=== PATIENT | female | born 1990 | race Caucasian/White ===

== ENCOUNTER → 2020-01-06 10:12 | Outpatient (BNVA) | payer MEDICAID, SELFPAY | PROVIDERS: Family Provider Family Medicine; PCP Emergency Medicine; Visit Provider Obstetrics & Gynecology | DX: Z34.93 Encounter for supervision of normal pregnancy, unspecified, third trimester (principal) | CPT/HCPCS: 76816; 82950; 84315; 85027 ==

== ENCOUNTER → 2020-01-20 11:55 | Outpatient (BNVA) | payer MEDICAID, SELFPAY | PROVIDERS: Family Provider Family Medicine; PCP Emergency Medicine; Visit Provider Obstetrics & Gynecology | DX: Z01.89 Encounter for other specified special examinations (principal) | CPT/HCPCS: 84315 ==

== ENCOUNTER → 2020-02-03 10:57 | Outpatient (BNVA) | payer MEDICAID, SELFPAY | PROVIDERS: Family Provider Family Medicine; PCP Emergency Medicine; Visit Provider Obstetrics & Gynecology | DX: Z01.89 Encounter for other specified special examinations (principal) | CPT/HCPCS: 84315 ==

== ENCOUNTER → 2020-02-17 08:42 | Outpatient (BNVA) | payer MEDICAID, SELFPAY | PROVIDERS: Family Provider Family Medicine; PCP Emergency Medicine; Visit Provider Obstetrics & Gynecology | DX: O99.013 Anemia complicating pregnancy, third trimester (principal); O99.323 Drug use complicating pregnancy, third trimester | CPT/HCPCS: 80307; 84315; 85027 ==

== ENCOUNTER → 2020-02-29 14:14 | Outpatient (BNVA) | payer MEDICAID, SELFPAY | PROVIDERS: Family Provider Family Medicine; PCP Emergency Medicine; Visit Provider Obstetrics & Gynecology | DX: Z34.90 Encounter for supervision of normal pregnancy, unspecified, unspecified trimester (principal); O09.893 Supervision of other high risk pregnancies, third trimester; O99.323 Drug use complicating pregnancy, third trimester; O99.013 Anemia complicating pregnancy, third trimester; O99.333 Smoking (tobacco) complicating pregnancy, third trimester; O99.343 Other mental disorders complicating pregnancy, third trimester | CPT/HCPCS: 84315; 87081 ==

== ENCOUNTER → 2020-03-08 13:01 | Outpatient (BNVA) | payer MEDICAID, SELFPAY | PROVIDERS: Family Provider Family Medicine; PCP Emergency Medicine; Visit Provider Obstetrics & Gynecology Female Pelvic Medicine and Reconstructive Surgery | DX: Z34.90 Encounter for supervision of normal pregnancy, unspecified, unspecified trimester (principal); O09.893 Supervision of other high risk pregnancies, third trimester; O99.013 Anemia complicating pregnancy, third trimester; O99.333 Smoking (tobacco) complicating pregnancy, third trimester; O99.343 Other mental disorders complicating pregnancy, third trimester; O99.323 Drug use complicating pregnancy, third trimester; F31.0 Bipolar disorder, current episode hypomanic; F12.10 Cannabis abuse, uncomplicated; F17.209 Nicotine dependence, unspecified, with unspecified nicotine-induced disorders | CPT/HCPCS: 80053; 82570; 84156; 84315; 84550; 85025 ==

== ENCOUNTER → 2020-03-15 10:10 | Outpatient (BNVA) | payer MEDICAID, SELFPAY | PROVIDERS: Family Provider Family Medicine; PCP Emergency Medicine; Visit Provider Obstetrics & Gynecology | DX: O09.893 Supervision of other high risk pregnancies, third trimester (principal) | CPT/HCPCS: 84315 ==

== ENCOUNTER 2020-03-18 20:21 | Outpatient (CLI) | payer MEDICAID, SELFPAY ==
[2020-03-18 20:32] VITALS: BMI 34.2
[2020-03-18 20:33] VITALS: BMI 34.2
[2020-03-18 20:38] VITALS: BP 140/77; PULSE 97
[2020-03-18 20:40] VITALS: TEMP 36.8
[2020-03-18 23:05] VITALS: BP 125/71; PULSE 80; RESP 16; TEMP 36.6
== END 2020-03-18 23:13 | disposition home or self-care (01) ==
LOC: OPOB 20:24 → OBGYN 20:25
PROVIDERS: Family Provider Family Medicine; PCP Emergency Medicine; Visit Provider Obstetrics & Gynecology
DX: O26.899 Other specified pregnancy related conditions, unspecified trimester (principal); Z3A.00 Weeks of gestation of pregnancy not specified; R10.9 Unspecified abdominal pain
CPT/HCPCS: 59025; 99211

== ENCOUNTER 2020-03-23 17:39 | Inpatient (IN) | payer MEDICAID, SELFPAY ==
[2020-03-23] VITALS (27 sets, daily range): BP systolic 0–157; BP diastolic 0–91; PULSE 16–109; RESP 15–25; TEMP 36.6–36.9; O2SAT 96–98; BMI 34.4
[2020-03-23] MEDS: dextrose 5%-lactated ringers 1,000 ML 125 ML IV (18:00)
[2020-03-23 18:03] LABS: Basophils # 0.1 10^3/uL (0.0-0.1); Basophils % 0.4 %; Eosinophils # 0.1 10^3/uL (0.0-0.8); Eosinophils % 0.5 %; Hematocrit 36.9 % (37.0-47.0); Hemoglobin 12.1 g/dL (11.5-15.3); Lymphocytes # 2.4 10^3/uL (0.8-4.8); Lymphocytes % 20.6 %; Mean Corpuscular HGB Conc 32.8 g/dL (30.0-36.0); Mean Corpuscular Hemoglobin 28.8 pg (28.0-34.0); Mean Corpuscular Volume 87.9 fL (81-99); Mean Platelet Volume 10.8 fL (7.4-10.4); Monocytes # 0.7 10^3/uL (0.2-0.9); Monocytes % 6.1 %; Neutrophils # 8.2 10^3/uL (1.8-7.7); Neutrophils % 71.8 %; Nucleated Red Blood Cells % 0 %; Platelet Count 308 10^3/cmm (130-400); Red Cell Distribution Width 13.2 % (12.1-15.1); White Blood Count 11.5 10^3/uL (4.0-10.0)
--- NOTE | 2020-03-23 18:05 | PC.NURSE ---
Patient reports she doesn't have primary custody of her four year old, her four year old's primary receiving barn custodian is that baby's father.
[2020-03-23] MEDS: fentaNYL 50 mcg/mL INJ 2mL IV (18:22)
[2020-03-23] MEDS: oxytocin 30 UNIT/500 ML BAG 600 UNIT IV (19:25)
--- NOTE | 2020-03-23 19:27 | P.PCNOB_ITS ---
Delivery Note: Date of delivery: March 23, 2020 Pre-delivery diagnoses: Term Post-delivery diagnoses: Term delivered Procedure: Spontaneous vaginal delivery Op report anesthesia: None Delivering Physician: Malcom Stark M.D. Estimated blood loss (mL): 500 Findings: Baby girl, Apgars: 8/9 weight 3165g. Delivery: The patient was noted to be complete and pushing, so was placed in the dorsal lithotomy position, Membranes were rupture with clear fluids And then she was prepped and draped in the usual sterile fashion for a vaginal delivery. Pt. Noted to have no anesthesia. At time the patient delivered a Viable Female infant At 39 weeks weighing 3165 g with scores of 8 and 9 at one and five minutes, respectively. The vertex was delivered spontaneously over Intact perineum. The patient was asked to push and the head delivered spontaneously in the MARGARET position, over an intact perineum. A nuchal cord was checked and 1 noted, and Delivered through around head as necessary. The anterior shoulder delivered easily and the posterior shoulder followed. The remainder of the was easily delivered and the oropharynx and nasopharynx was bulb suctioned. The infant was noted to have spontaneous cry and spontaneous movement of all four extremities. The cord was clamped x 2 and cut and noted to have 2 arteries and one vein. The infant was passed to the Mother's abdomen where Nursing personnel were in attendance. Cord Blood was then obtained. The placenta delivered intact Spontaneously and the uterus Was explored. 20 units of Pitocin was placed in the IV bag to firm the uterus. Examination of the cervix and vaginal vault did not reveal any lacerations. A vaginal pack was then placed. Examination of the perineum showed No lacerations. The vaginal pack was then removed. The patient tolerated this procedure well, and recovered in L&D with her infant to the OB lui. All sponge and needle counts were correct. A&P Assessment and plan (1) Spontaneous vaginal delivery: Status: Resolved Coding Level of Care Code Acute In Service Coordinator for Chg Fwd Diagnoses Spontaneous vaginal delivery O80
[2020-03-23 20:39] LABS: Amphetamines Screen Urine Negative (Negative); Barbiturates Screen Urine Negative (Negative); Benzodiazepines Screen Urine Negative (Negative); Cocaine Screen Urine Negative (Negative); Opiate Screen Urine Negative (Negative); PCP Screen Urine Negative (Negative); THC Screen Urine Negative (Negative)
--- NOTE | 2020-03-23 21:15 | PC.NURSE ---
Patient ambulated independently from LDR 4 to room 205-2.
[2020-03-23] MEDS: HYDROcodone-acetaminophen 5-325 mg Tablet PO (21:27)
[2020-03-24] VITALS (7 sets, daily range): BP systolic 100–121; BP diastolic 53–81; PULSE 75–87; RESP 16–18; TEMP 36.5–36.9; O2SAT 96–98
[2020-03-24] MEDS: HYDROcodone-acetaminophen 5-325 mg Tablet PO (06:48)
[2020-03-24 09:06] LABS: Hematocrit 30.7 % (37.0-47.0); Mean Corpuscular HGB Conc 32.6 g/dL (30.0-36.0); Mean Corpuscular Hemoglobin 28.9 pg (28.0-34.0); Mean Corpuscular Volume 88.7 fL (81-99); Mean Platelet Volume 10.3 fL (7.4-10.4); Platelet Count 224 10^3/cmm (130-400); Red Blood Count 3.46 10^6/uL (4.1-5.3); Red Cell Distribution Width 13.2 % (12.1-15.1); White Blood Count 12.8 10^3/uL (4.0-10.0)
[2020-03-24] MEDS: docusate sodium 100 mg Capsule PO ×2 (10:57→19:13)
[2020-03-24] MEDS: prenatal vitamin Capsule 1 CAP PO (10:57)
--- NOTE | 2020-03-24 19:39 | PM.OBGYDC ---
Discharge Providers MICROFILM TECHNICIAN Date of Admission: 03/23/20 17:39 Date of Discharge: 04/18/20 Attending Provider at Admission: Malcom Stark MD Attending Provider at Discharge: Malcom Stark MD Primary Care Provider: DARWIN Richmodn Diagnoses at Discharge Discharge Diagnosis (1) Spontaneous vaginal delivery: Status: Resolved Problem details: Status post spontaneous vaginal delivery day 1 (2) Term delivered: Status: Resolved Reason for Visit Reason for Visit: Reason For Visit: contractions Hospital Course Hospital Course: 29-year-old female with an estimated gestational age at 39 weeks +3 days came to labor and delivery with the chief complaint of contractions every 2-3 minutes. After triage evaluation she was noted to have cervical changes. She was admitted to labor and delivery in early active labor and she progressed to have a spontaneous vaginal delivery without complications. observation was uneventful. She is afebrile hemodynamically stable, tolerating diet well, ambulating without difficulty. Information Peripartum Data: Infant Delivery Method: Vaginal Physical Exam Narrative: EXAM NARRATIVE: GA; alert and oriented x 3 HEENT: normal Breasts: engorged Nipples - skin intact Lungs; clear to auscultation Heart: regular rhythm, no murmurs. Abd: Appropriately tender. BS+. Uterine fundus below umbilicus. No Fundal Tenderness. Perineum: normal lochia. Extremities: no edema, no cyanosis, no tenderness. Discharge Data Data Completed and Pending: Laboratory Tests 03/23/20 17:30 WBC 11.5 H Hgb 12.1 Hct 36.9 L Plt Count 308 Labs from last 24 hours 03/24/20 03/23/20 08:40 17:30 WBC 12.8 H RBC 3.46 L Hgb 10.0 L Hct 30.7 L MCV 88.7 MCH 28.9 MCHC 32.6 RDW 13.2 Plt Count 224 MPV 10.3 Urine Opiates Scre en Negative Ur Barbiturates Sc reen Negative Ur Phencyclidine S crn Negative Ur Amphetamines Sc reen Negative U Benzodiazepines Scrn Negative Urine Cocaine Scre en Negative U Marijuana (THC) Screen Negative Procedures Performed: Spontaneous vaginal delivery Vitals: Last Vital Signs Temp 98.4 F 03/24/20 16:05 Pulse 86 03/24/20 16:05 Resp 18 03/24/20 16:05 BP 112/70 03/24/20 16:05 Pulse Ox 98 03/24/20 10:00 Discharge Plan Discharge Patient Disposition: Home, Self-Care Condition: Stable Prescriptions: New acetaminophen 325 mg Tablet 650 mg PO Q6H PRN (Reason: Mild pain or temp > 100.4) Qty: 60 RF: 0 ibuprofen 800 mg Tablet 800 mg PO TID Qty: 60 RF: 0 docusate sodium 100 mg Capsule 100 mg PO BID Qty: 60 RF: 0 Continued prenat.vits,hany,[id number] Tablet 1 tab PO ONCE RF: 0 ferrous sulfate 325 mg (65 mg iron) tablet 325 mg PO BID Qty: 60 RF: 4 Discharge Orders: Discharge Order (Routine); Ordered 03/24/20 Ordered By: Malcom Stark Discharge Diet: As Directed Discharge Activity: Increase activity as tolerated Patient Instructions: Iron Supplements (By mouth), Vitamins (By mouth), OB Discharge Report, OB Food/Drug Interaction Guide, OB Care at Home, OB Home Care, OB Proud Parent Packet, OB Vaginal Deliveries Activity Restrictions/Additional Instructions: Pelvic rest for 6 weeks (no sex, no tampons, no vaginal douches). Return to the emergency room if any fever, increased bleeding or pain. Discharge Date/Time: 03/24/20 21:00 Discharge Attestations MICROFILM TECHNICIAN Time Spent in Discharge Care*: greater than 30 min Specific Discharge Activities: Specific discharge activities: educating patient and educating and/or supporting family/caregiver Time Spent in Smoking Cessation: Time spent discussing smoking cessation with patient: 3 to 10 minutes Coding Level of Care Code Acute Marina Manager for Susan Fwd Diagnoses Spontaneous vaginal delivery O80 Term delivered O80
== END 2020-03-24 21:00 | disposition home or self-care (01) | DRG 807 ==
LOC: OPOB 19:56
PROVIDERS: Admitting Provider Obstetrics & Gynecology; Family Provider Family Medicine; PCP Emergency Medicine; Visit Provider Obstetrics & Gynecology
DX: O99.824 Streptococcus B carrier state complicating childbirth (principal); Z37.0 Single live birth; Z3A.39 39 weeks gestation of pregnancy; O69.1XX0 Labor and delivery complicated by cord around neck, with compression, not applicable or unspecified; O99.344 Other mental disorders complicating childbirth; F31.9 Bipolar disorder, unspecified; O99.02 Anemia complicating childbirth; D64.9 Anemia, unspecified; Z87.891 Personal history of nicotine dependence
CPT/HCPCS: 12345; 36415; 59025; 59409; 80306; 85025; 85027; 96374; 99211; J3010

== ENCOUNTER 2020-04-24 09:07 | Day surgery (SDC) | payer MEDICAID, SELFPAY ==
[2020-04-20 14:18] VITALS: BMI 31.4
[2020-04-24] VITALS (9 sets, daily range): BP systolic 106–148; BP diastolic 74–107; PULSE 63–99; RESP 14–20; TEMP 36.2–37.2; O2SAT 97–100
--- NOTE | 2020-04-24 09:57 | ANES.PREANE2 ---
Pre-Anesthetic Assessment Pre-Anesthetic Assessment: Height/Weight: Height 1.57 m Weight 78.018 kg Temp Pulse Resp BP Pulse Ox 97.2 F L 68 18 106/74 99 04/24/20 09:51 04/24/20 09:51 04/24/20 09:51 04/24/20 09:51 04/24/20 09:51 Preop Diagnosis: Undesired fertility Proposed Procedure: Operation Date: 04/24/20 10:45 Proposed Procedures p Laparoscopic bilateral tubal fulguration with salpingectomy/05144/Z30.22(Not Applicable) - Angel Michelle MD Last intake: Intake Last Liquid Date 04/23/20 Last Liquid Time 22:00 Last Solid Date 04/23/20 Last Solid Time 22:00 Social: Social History: Tobacco (quit) and No alcohol Exam: Pre-Anes Outpt Exam: alert, oriented x 3, clear to auscultation bilaterally and regular rate & rhythm Airway: Submandibular: WNL Cervical ROM: WNL MP: 2 Dentition: False (upper) History/ROS: No significant history except as noted Pulmonary: Pulmonary: None reported CV/HEM: CV/HEM: None reported : : None reported Hepatic: Hepatic: None reported GI: GI: None reported Metabolic: Metabolic: None reported Musc/skel: Musc/skel: None reported Neuropsych: Neuropsych: Bipolar Anesthetic Plan: ASA status: 2 Anesthesia: Anesthesia Evaluation and General Risk of > 500 ml blood loss (7ml/kg in children): No PFSH Anesthesia PFSH: Medical History Bipolar disorder, current episode hypomanic Surgical History History of dental surgery (~2009) Family History Mother Thyroid disease Grandmother Thyroid disease maternal Family/Other Thyroid disease maternal aunt Social History Smoking and tobacco status: former smoker Alcohol intake: current Other details last substance use: Quit marijuana 5 wk ago as of 01/06/20. H/o Meth use (clean since 11/2018). Female Reproductive History: Para: 3 Spontaneous abortions: No Data Anesthesia Cardiac Studies: No Data to Display
[2020-04-24] MEDS: sodium chloride 0.9% 1,000 ML 30 ML IV (10:12)
[2020-04-24] MEDS: ketorolac 30 mg/mL INJ IVP (10:12)
[2020-04-24 10:14] LABS: OR HCG Qualitative Urine Negative (Negative)
--- NOTE | 2020-04-24 11:17 | W.PM.OPSUD ---
Surgery/Procedure H&P Update DATE OF PROCEDURE: April 24, 2020 DATE H&P PERFORMED: 04/19/20 H&P UPDATE INFORMATION: I have reviewed H&P completed within last 30 days, I have examined patient prior to procedure, No changes to prior documentation and H&P is in [facility] EMR on date indicated PREOP DIAGNOSIS: Undesired fertility PLANNED PROCEDURE: Operation Date: 04/24/20 10:45 Proposed Procedures p Laparoscopic bilateral tubal fulguration with salpingectomy/23249/Z30.22(Not Applicable) - Angel Michelle MD
--- NOTE | 2020-04-24 12:08 | PM.OP ---
Operative Report Date of procedure: April 24, 2020 Pre-op Diagnosis: Undesired fertility Post-op Diagnosis: Undesired fertility Procedure Done: Laparoscopic tubal fulguration with complete salpingectomy Specimens removed/disposition: Right and left fallopian tubes Surgeon: Angel Michelle Anesthesia: General Estimated blood loss (mL): 10 IV fluids (mL): 700 Complications: None Findings: Normal-appearing uterus tubes and ovaries. First to second-degree uterine prolapse noted. Brief History: Patient is a 29-year-old white female 4, para 4 who is currently . She had discussed during that she did not want any further children wanted to have her tubes tied. Following delivery she is still adamant she wanted proceed with sterilization but wanted to have a complete salpingectomy. As result she is now presenting as an interval sterilization approximately 5 weeks after delivery. I reviewed with patient that complete removal of the tubes was not reversible. Failure rates associated with sterilization's were discussed and risk for ectopic pregnancies were reviewed. Questions were answered. She still wished to proceed with complete removal of tubes. Procedure: Patient was taken to the operating room were general anesthesia was obtained. She was prepped and draped in the usual sterile fashion in the dorsal supine position with legs in Robbie style stirrups. Sequential compression boots were placed prior to starting the case. Catheter was inserted and bladder was drained. Exam under anesthesia was performed and patient was found to have first to second-degree uterine prolapse and a retroverted uterus. Weighted speculum was placed in the vagina and the cervix was grasped with a single-tooth tenaculum. A ZUMI was placed. The infraumbilical region was injected with 2% lidocaine with epinephrine. Skin incision was made with the knife in the lower edge of the navel and a size 5 trocar and sheath were inserted under direct visualization using an Optiview type technique. Trocar was removed and replaced with a laparoscope confirming intra-abdominal placement. The abdomen was inflated with carbon dioxide. The anterior abdominal wall was inspected and noted to be free of adhesions. In the left and right lower quadrants lateral to the inferior epigastric vessels, the skin was injected with 2% lidocaine with epinephrine. Skin incisions were made with a knife and a 5 mm trocar and sheath were inserted under direct visualization at each site. The pelvis was thoroughly inspected and uterus appeared normal. Both ovaries appeared normal. She had filmy adhesions between the ovary and the left fallopian tube. 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 Using the Voyant sealing device, starting on the left side at the fimbriated end of the tube, the mesosalpinx was sealed and cut along the length of the tube. At the proximal end of the tube, the tube itself was sealed and cut. The fallopian tube was brought out through the port. Using the Voyant sealing device, starting on the right side at the fimbriated end of the tube, the mesosalpinx was sealed and cut along the length of the tube. At the proximal end of the tube, the tube itself was sealed and cut. The fallopian tube was brought out through the port. The dissection area was thoroughly inspected and noted to be hemostatic. The abdomen was deflated and the ports removed. The 5 mm sites were closed with single stitches of 4-0 Vicryl suture. Skin glue was applied.. The ZUMI was removed and there was minimal bleeding from the tenaculum site. Patient tolerated the procedure well. Sponge, needle and instrument counts were correct. DRAINS: None POSTOPERATIVE STATUS: The patient was transferred to the recovery room in satisfactory condition. DISPOSITION: Discharge to home when criteria was met. FOLLOWUP APPOINTMENT: Followup appointment is scheduled in my office on 05/07/2020. MEDICATIONS: Patient received prescriptions for: [place] 5/325 mg, 1 to 2 tablets every 6 hours as needed for pain, #20, 0 refills May use [id number] ibuprofen.
[2020-04-24] MEDS: meperidine 50 mg/mL INJ 12.5 MG IVP ×2 (12:20→12:27)
== END 2020-04-24 13:29 | disposition home or self-care (01) ==
PROVIDERS: Visit Provider Obstetrics & Gynecology
PROC: (CPT 58661; principal; 2020-04-24 10:45)
DX: Z30.2 Encounter for sterilization (principal); Z87.891 Personal history of nicotine dependence
CPT/HCPCS: 58670; 12345; 84703; 88302; 96374; J1100; J1885; J2001; J2175; J2405; J2704; J2710; J3010; J3490; J7030

== ENCOUNTER → 2021-02-28 08:16 | Outpatient (BNVA) | payer MEDICAID, SELFPAY | PROVIDERS: Visit Provider Psychiatry & Neurology Psychiatry | DX: F43.12 Post-traumatic stress disorder, chronic (principal); F33.1 Major depressive disorder, recurrent, moderate; F12.10 Cannabis abuse, uncomplicated; F17.209 Nicotine dependence, unspecified, with unspecified nicotine-induced disorders | CPT/HCPCS: 99204 ==

== ENCOUNTER → 2025-06-22 14:00 | Outpatient (BNVA) | payer MEDICAID, SELFPAY | PROVIDERS: Visit Provider Nurse Practitioner | DX: J02.9 Acute pharyngitis, unspecified (principal) | CPT/HCPCS: 87071; 87426; 87880 ==